=== PATIENT | female | born 1965 | race Caucasian/White ===

== ENCOUNTER → 2017-11-15 | Outpatient (CLI) | payer OTHER ==
[~2017-11-15] MED LIST: GADAVIST IV PRN
--- NOTE | 2017-11-15 08:46 | DIAGNOSTIC IMAGING REPORT ---
BRAIN COMBO CLINICAL HISTORY: R51 [id number] Abnormal brain [id number] COMPARISON STUDY: No previous studies for comparison. TECHNIQUE: Utilizing a 1.5 Rachell magnet and dedicated coil, multiplanar, multiecho imaging of the brain was performed pre and postcontrast administration. IV administration of 10 mL of Gadavist contrast was uneventful. FINDINGS: No prior studies for comparison. Diffusion-weighted images are considered negative for an acute ischemic insult. Slight heterogeneity of signal of the pontine medullary junction. Coronal FLAIR images demonstrate a multiplicity of foci of increased signal within the periventricular and cerebral hemispheres bilaterally. Minimal foci of increased signal within the optic radiations. Postcontrast images show multifocal slightly serpiginous foci of enhancement of the left paraventricular region. These do not have an exact correlation with foci of increased signal on the T2 or inversion recovery sequences. Possibly of superimposed capillary telangectasia, versus venous angiomas, versus active plaques of demyelination is a consideration. Possibility of active plaques of demyelinating disease is also a consideration versus subacute ischemic foci. The absence of diffusion signal, however diminishes the possibility of a vascular etiology. Ventricular system is midline. The pituitary stock and optic chiasm are unremarkable. Pituitary is relatively small and slightly heterogeneous. IMPRESSION: 1. Multiple foci of increased signal within the periventricular and cerebral hemispheric regions bilaterally. 2. These findings are combined with several slightly linear foci of post contrast enhancement which do not match completely with the foci of increased signal on the inversion recovery sequences. 3. Diagnostic considerations include a demyelinating disorder, with the possibility of left cerebral postcontrast enhancement on the basis of subacute chronic small vessel change, capillary tengectasia changes, versus active demyelinating plaques. The above report was generated using voice recognition software. It may contain grammatical, syntax or spelling errors. Electronically signed by: James Monsivais M.D. 11/15/2017 8:45 AM Dictated Date/Time: 11/15/2017 8:32 AM
== END | disposition home or self-care (01) ==
LOC: C.MRI 07:31
PROVIDERS: ATTEND Psychiatry & Neurology Neurology
DX: R51 Headache (principal); R90.89 Other abnormal findings on diagnostic imaging of central nervous system

== ENCOUNTER → 2017-12-22 | Outpatient (CLI) | payer OTHER ==
--- NOTE | 2017-12-22 16:32 | DIAGNOSTIC IMAGING REPORT ---
MRA HEAD WITHOUT CONTRAST HISTORY: Headache R51 [id number] Abnormal brain MRII77.6 [id number] TECHNIQUE: 3-D [id number] MRA of the brain was performed without contrast. COMPARISON STUDY: MRI brain 11/15/2017 FINDINGS: Visualized intracranial internal carotid arteries, distal vertebral arteries, and basilar artery are widely patent. There is no significant stenosis, occlusion, or aneurysm seen within the bilateral ACAs, MCAs, or industrial service technician. Small caliber right vertebral artery possibly on a congenital basis. IMPRESSION: No significant stenosis, occlusion, or aneurysm within the [place] of [place]. Small caliber right vertebral artery possibly on a congenital basis. The above report was generated using voice recognition software. It may contain grammatical, syntax or spelling errors. Electronically signed by: James Monsivais M.D. 12/22/2017 4:31 PM Dictated Date/Time: 12/22/2017 4:26 PM
== END | disposition home or self-care (01) ==
LOC: C.MRI 14:49
PROVIDERS: ATTEND Psychiatry & Neurology Neurology
DX: I77.6 Arteritis, unspecified (principal); R51 Headache; R90.89 Other abnormal findings on diagnostic imaging of central nervous system

== ENCOUNTER → 2018-03-21 | Outpatient (CLI) | payer OTHER ==
[~2018-03-21] MED LIST changes: +ADVIN50/60 INH; +ALBU0.633 NEB; +ASPI81TA28 PO; +AZIT250T PO; +CITA40TA12 PO; +CYM/30 PO; +DULA0.5I INJ; +EZET10TA63 PO; +FURO-85 PO; -GADAVIST IV PRN; +HMLI7525 SC; +HYDR12.55 PO; +KLOR-CON PO; +LANS30CA12 PO; +LISI-725 PO; +MONT1TAB3 PO; +NICO21DI35 TD; +NICO2GUM7 PO; +NXM/40 PO; +ONDA4TAB46 PO; +OXCA150T2 PO; +OXGN; +PERP4TAB37 PO; +PRED10TA PO; +RANI300T2 PO; +SIMV10TA2 PO; +TIOT1SPR INH; +TOPI25TA99 PO; +VNTHFA/IN INH
== END | disposition home or self-care (01) ==
LOC: C.LAB1850 14:11
PROVIDERS: ATTEND Internal Medicine Rheumatology
DX: M31.6 Other giant cell arteritis (principal); R70.0 Elevated erythrocyte sedimentation rate; Z79.52 Long term (current) use of systemic steroids